=== PATIENT | male | born 1960 | race Caucasian/White ===

== ENCOUNTER 2018-10-14 08:51 | Day surgery (SDC) | payer OTHER ==
[2018-10-14] MEDS ORDERED: PROPOFOL 40 ML (10:16)
[2018-10-14] MEDS ORDERED: LIDOCAINE 100 MG SYRINGE (10:16)
== END 2018-10-14 12:43 | disposition home or self-care (01) ==
LOC: GIL 08:51
DX: K92.1 Melena (principal); D12.7 Benign neoplasm of rectosigmoid junction; D12.3 Benign neoplasm of transverse colon; K64.4 Residual hemorrhoidal skin tags; I10 Essential (primary) hypertension; E11.9 Type 2 diabetes mellitus without complications; I25.10 Atherosclerotic heart disease of native coronary artery without angina pectoris; Z79.82 Long term (current) use of aspirin; Z79.84 Long term (current) use of oral hypoglycemic drugs
CPT/HCPCS: 45380; 82962; 88305